=== PATIENT | female | born 1990 | race African-American/Black ===

== ENCOUNTER 2019-05-08 14:18 | Emergency (ER) | payer OTHER ==
[~2019-05-08] VITALS: Ht 160 cm; Wt 63.5 kg
--- NOTE | 2019-05-08 15:19 | NUR ---
ED Nurse Note:blood and urine sent to labs
[2019-05-08 15:22] VITALS: BP 118/79
[2019-05-08 15:36] LABS: BASOPHILS % (AUTO) 1.5 % (0.0-2.0); EOSINOPHILS % (AUTO) 2.8 % (0.0-3.0); HEMATOCRIT 40.8 % (37.0-47.0); HEMOGLOBIN 13.2 G/DL (12.0-16.0); LYMPHOCYTES % (AUTO) 26.9 % (20.0-45.0); MEAN CORPUSCULAR VOLUME 84 FL (80-99); MONOCYTES % (AUTO) 11.1 % (1.0-10.0); NEUTROPHILS % (AUTO) 57.7 % (45.0-75.0); PLATELET COUNT 215 K/UL (150-450); RED BLOOD COUNT 4.83 M/UL (4.20-5.40); RED CELL DISTRIBUTION WIDTH 12.2 % (11.6-14.8); WHITE BLOOD COUNT 5.8 K/UL (4.8-10.8)
--- NOTE | 2019-05-08 16:02 | Emergency Room Report ---
History of Present Illness General Chief Complaint: Female Urogenital Problems Source: Patient Present Illness HPI 28 YO female presents to the ED c/o heavy vaginal bleeding since IUD removal 10 days ago. Pt. is . She was not placed onto oral bc or alternative method. Pt. reports she is sexually active and uses condoms. She denies discharge otherwise. She reports while on IUD having scant to no period monthly. Pt. reports 6/10 in severity lower abdominal cramping pain. She denies abdominal tenderness. She denies constipation or diarrhea. She denies dysuria or urinary frequency. She denies N/V, Fevers or chills. She denies fatigue, dizziness, syncope or hx of anemia. Denies hx of taking blood thinning medications or hx of blood dyscrasia. Allergies: Coded Allergies: No Known Allergies (Unverified , 05/08/19) Patient History Past Medical History: see triage record Past Surgical History: none Pertinent Family History: none Last Menstrual Period: 04/09/19 Now: No Reviewed Nursing Documentation: PMH: Agreed; PSxH: Agreed Nursing Documentation-PMH Past Medical History: No Stated History Review of Systems All Other Systems: negative except mentioned in HPI Physical Exam Vital Signs Date Time Temp Pulse Resp B/P (MAP) Pulse Ox O2 Delivery O2 Flow Rate FiO2 05/08/19 14:25 97.9 68 19 118/79 (92) 97 Room Air Sp02 EP Interpretation: reviewed, normal General Appearance: no apparent distress, alert, GCS 15, non-toxic Head: normocephalic, atraumatic Eyes: bilateral eye normal inspection, bilateral eye PERRL ENT: hearing grossly normal, normal voice Neck: full range of motion Respiratory: lungs clear, normal breath sounds, speaking full sentences Cardiovascular #1: regular rate, rhythm Gastrointestinal: normal bowel sounds, non tender, soft, non-distended, no guarding Genitourinary: normal inspection, no CVA tenderness, cervix normal, os closed - BRB in the vaginal canal. one small clot. NO CMT Musculoskeletal: normal range of motion, gait/station normal, non-tender Neurologic: alert, motor strength/tone normal, oriented x3, sensory intact, responsive, speech normal Psychiatric: judgement/insight normal Skin: no rash, normal color Medical Decision Making PA Attestation Dr. Ash is my supervising Physician whom patient management has been discussed with. Diagnostic Impression: Primary Impression: Menorrhagia due to intrauterine device (IUD) ER Course 28 YO female presents to the ED c/o heavy vaginal bleeding since IUD removal 10 days ago. Pt. is . She was not placed onto oral bc or alternative method. Pt. reports she is sexually active and uses condoms. She denies discharge otherwise. She reports while on IUD having scant to no period monthly. Pt. reports 6/10 in severity lower abdominal cramping pain. She denies abdominal tenderness. She denies constipation or diarrhea. She denies dysuria or urinary frequency. She denies N/V, Fevers or chills. She denies fatigue, dizziness, syncope or hx of anemia. Denies hx of taking blood thinning medications or hx of blood dyscrasia. Ddx considered but are not limited to: Fibroid, ectopic , Fibroid, Spontaneous ,Dysmenorrhea Vital signs: are WNL, pt. is afebrile Pelvic Exam: blood in vaginal vault. H&PE are most consistent with: Menorrhagia ORDERS: -CBC: WNL -UA:WNL -Urine hcg- Negative ED INTERVENTIONS: None at this time. DISCHARGE: At this time pt. is stable for d/c to home. Will provide printed patient care instructions, and any necessary prescriptions. Care plan and follow up instructions have been discussed with the patient prior to discharge. Labs Test 05/08/19 15:10 05/08/19 15:19 Urine HCG, Qualitative Negative (NEGATIVE) White Blood Count 5.8 K/UL (4.8-10.8) Red Blood Count 4.83 M/UL (4.20-5.40) Hemoglobin 13.2 G/DL (12.0-16.0) Hematocrit 40.8 % (37.0-47.0) Mean Corpuscular Volume 84 FL (80-99) Mean Corpuscular Hemoglobin 27.4 PG (27.0-31.0) Mean Corpuscular Hemoglobin Concent 32.4 G/DL (32.0-36.0) Red Cell Distribution Width 12.2 % (11.6-14.8) Platelet Count 215 K/UL (150-450) Mean Platelet Volume 6.6 FL (6.5-10.1) Neutrophils (%) (Auto) 57.7 % (45.0-75.0) Lymphocytes (%) (Auto) 26.9 % (20.0-45.0) Monocytes (%) (Auto) 11.1 % (1.0-10.0) Eosinophils (%) (Auto) 2.8 % (0.0-3.0) Basophils (%) (Auto) 1.5 % (0.0-2.0) Last Vital Signs Date Time Temp Pulse Resp B/P (MAP) Pulse Ox O2 Delivery O2 Flow Rate FiO2 05/08/19 15:22 97.9 19 118/79 97 Room Air 05/08/19 14:25 68 Disposition: HOME, SELF-CARE Condition: Stable Scripts Iron,Carbonyl/Vit C/Vit B12/Fa (IRON 100 PLUS TABLET) 1 Each Tablet 1 EACH PO DAILY, #30 TAB Prov: Sarah Beth De Leon 05/08/19 Ibuprofen* (MOTRIN*) 600 Mg Tablet 600 MG ORAL THREE TIMES A DAY for 7 Days, #21 TAB 0 Refills Prov: Sarah Beth De Leon 05/08/19 Patient Instructions: Menorrhagia, [id number] Additional Instructions: Take medications as directed. Follow up with a [facility] within 3 days, even if your symptoms have resolved. * * Return sooner to ED if new symptoms occur, or current symptoms become worse. - Please note that this Emergency Department Report was dictated using [employer] supervisor technology software, occasionally this can lead to erroneous entry secondary to interpretation by the dictation equipment. Sarah Beth De Leon May 08, 2019 16:02
[2019-05-08] MEDS ORDERED: IBUPROFEN600 MG ORAL (16:03)
[2019-05-08] MEDS ORDERED: IRON 100 PLUS1 EACH PO (16:03)
[2019-05-08 16:05] VITALS: BP 118/79
--- NOTE | 2019-05-08 16:13 | NUR ---
ER DISCHARGE NOTE: Patient is cleared to be discharged per ERMD, pt is aox4, on room air, with stable vital signs. pt was given dc and prescription instructions, pt was able to verbalize understanding, pt is able to ambulate with steady gait. pt took all belongings.
== END 2019-05-08 16:05 | disposition home or self-care (01) ==
LOC: EMR 15:50
DX: N92.0 Excessive and frequent menstruation with regular cycle (principal); Z97.5 Presence of (intrauterine) contraceptive device
CPT/HCPCS: 36415; 81025; 85025; 99283